=== PATIENT | female | born 1935 | race Caucasian/White ===

== ENCOUNTER → 2016-07-15 | Outpatient (CLI) | payer MEDICARE ==
--- NOTE | 2016-07-15 12:18 | XR ---
EXAMINATION TYPE: XR chest 2V DATE OF EXAM: 07/15/2016 12:09 PM COMPARISON: 05/16/2016 TECHNIQUE: PA and lateral views submitted. HISTORY: Cough FINDINGS: Biapical pleural thickening greater on the right is stable. Area of consolidation involving the right lung is also again noted. Cardiomegaly and underlying COPD seen and there is evidence of calcified l ymph nodes. Right upper lobe subsegmental consolidation is stable. IMPRESSION: 1. Right-sided area of infiltrate and evidence of COPD. Underlying neoplasm not excluded.
--- NOTE | 2016-07-15 12:19 | XR ---
EXAMINATION TYPE: XR Hip Complete LT DATE OF EXAM: 07/15/2016 12:09 PM COMPARISON: NONE HISTORY: Pain There is no evidence of erosive change or acute fracture. There is moderate axial narrowing of the joint space with diffuse osteopenia. Diffuse osteopenia. Impression 1. No evidence of acute fracture or dislocation. 2. Post arthritic changes.
== END | disposition home or self-care (01) ==
LOC: RADXRMAIN 11:26
PROVIDERS: ATTEND Internal Medicine
DX: J44.9 Chronic obstructive pulmonary disease, unspecified (principal); R91.8 Other nonspecific abnormal finding of lung field; M16.12 Unilateral primary osteoarthritis, left hip
CPT/HCPCS: 71020; 73502

== ENCOUNTER → 2016-08-20 | Outpatient (CLI) | payer MEDICARE ==
[2016-08-20 10:51] LABS: Blood Urea Nitrogen 18 mg/dL (7-17); Non-African American GFR(MDRD) >60 (>60 ml/min/1.73 sqM)
--- NOTE | 2016-08-20 13:16 | CT ---
EXAMINATION TYPE: CT chest w con DATE OF EXAM: 08/20/2016 11:20 AM COMPARISON: Chest CT May 13, 2016. Recent abnormal chest x-ray from 5 days ago. HISTORY: Abnormal chest x-ray, history of pneumonia. CT DLP: 107.4 mGycm. Automated Exposure Control for Dose Reduction was Utilized. TECHNIQUE: CT scan of the thorax is performed following with IV Contrast, patient injected with 100 mL of Omnipaque 300. FINDINGS: LUNGS: There is persistent moderate apical pleural thickening and parenchymal scarring bilaterally, r ight greater than left. Round focus of groundglass opacity anterior right upper lung on axial image 2 4 is now present measuring 1.1 cm. There is persistent groundglass opacity with consolidation involvi ng the majority of the right lower lobe felt only slightly improved from prior chest CT. Somewhat mas s areas of consolidation remain present. Left lung is grossly clear. No significant pleural effusion is seen bilaterally on current study. No pneumothorax is noted. Tracheobronchial tree remains patent. There is calcified 8 mm nodule posteriorly in the right upper lobe on axial image 11. MEDIASTINUM: There are no greater than 1 cm noncalcified hilar or mediastinal lymph nodes. There is p rominent but calcified pericarinal lymph node on axial image 25. No pericardial effusion is seen. There is persistent cardiomegaly with severe right greater than left biatrial dilatation. Coronary ar aline calcification is noted. There is moderate atherotic change of the aorta. Ascending aorta measure s 3.2 cm in diameter on axial image 29. OTHER: Osseous structures are demineralized. Scattered calcifications throughout the spleen are consi stent with product of old granulomatous disease. There is partial visualization of pancreas which is somewhat small in size, there is some suggestion of ductal dilatation with scattered pancreatic and p eripancreatic cysts, while the findings may be product of chronic pancreatitis further workup is advi sed as cystic neoplasm cannot be excluded. Surgical clips or dystrophic calcifications medially in le ft breast are noted. IMPRESSION: 1. Persistent groundglass opacity and masslike consolidation involving majority of right lower lobe o nly slightly improved in over 3 months time, finding could reflect residual infectious process but ne oplasm such as bronchoalveolar carcinoma cannot be excluded, consider bronchoscopy to further evaluat e. 2. Abnormal pancreas, advise multiphase contrast-enhanced CT or MRI pancreatic protocol follow-up to better evaluate and characterize. 3. Cardiomegaly with severe right greater than left atrial dilatation.
== END | disposition home or self-care (01) ==
LOC: RADCTMAIN 10:09
PROVIDERS: ATTEND Internal Medicine Critical Care Medicine
DX: R91.8 Other nonspecific abnormal finding of lung field (principal); J98.4 Other disorders of lung; I51.7 Cardiomegaly; Z87.01 Personal history of pneumonia (recurrent)
CPT/HCPCS: 82565; 84520; 71260; Q9967

== ENCOUNTER → 2017-03-10 | Outpatient (CLI) | payer MEDICARE ==
[2017-03-10 12:03] LABS: Blood Urea Nitrogen 21 mg/dL (7-17); Non-African American GFR(MDRD) 60 (>60 ml/min/1.73 sqM)
--- NOTE | 2017-03-10 13:33 | CT ---
EXAMINATION TYPE: CT chest w con DATE OF EXAM: 03/10/2017 COMPARISON: 08/20/2016 HISTORY: Pleural effiusion CT DLP: 449 mGycm Automated exposure control for dose reduction was used. CONTRAST: CT scan of the chest is performed with IV Contrast, patient injected with 100 ml mL of Omnipaque 300. FINDINGS: LUNGS: Enlarging area of airspace consolidation right lower lobe with interposed atelectasis. Mucus p lugging several subsegmental bronchi right lower lobe. There are multiple bilateral pulmonary nodules right greater than left some of which demonstrate vague calcifications while most of the nodules do not. The largest nodule is seen within the right upper lobe and measures 7 mm. Nodules within the lef t lung measure less than 5 mm. Total number of nodules in the right lung is greater than 50 while wit hin the left lung is estimated at less than 20. MEDIASTINUM: There are no greater than 1 cm hilar or mediastinal lymph nodes. No pericardial effusi on is seen. Thoracic aorta is of normal caliber. The heart is not enlarged. UPPER ABDOMEN: Hyperdense splenic lesions are stable. Pancreatic cystic lesions are partially imaged. Splenic and hepatic granulomas identified. OTHER: No additional significant abnormality is seen. IMPRESSION: 1. Large area of enlarging airspace consolidation right lower lobe associated volume loss and mucous plugging. While this could reflect pneumonia underlying mass is not excluded. 2. Interval development of innumerable pulmonary nodules right greater than left some which are calci fied. This may reflect fungal infection or atypical pneumonia. Metastatic disease is not excluded.
== END | disposition home or self-care (01) ==
LOC: RADCTMAIN 11:15
PROVIDERS: ATTEND Internal Medicine Critical Care Medicine
DX: R91.8 Other nonspecific abnormal finding of lung field (principal); J90 Pleural effusion, not elsewhere classified; Z88.0 Allergy status to penicillin
CPT/HCPCS: 82565; 84520; 71260; 36415; Q9967